=== PATIENT | male | born 1990 | race African-American/Black ===

== ENCOUNTER 2022-02-23 08:21 | Emergency (ER) | payer SELFPAY ==
[~2022-02-23] VITALS: Ht 177.8 cm; Wt 43.2 kg
[2022-02-23 08:23] VITALS: BP 132/77
[2022-02-23] MEDS ORDERED: GABA-283 PO (08:38)
== END 2022-02-23 08:39 | disposition left against medical advice (07) ==
LOC: M ED 08:21
DX: Z53.21 Procedure and treatment not carried out due to patient leaving prior to being seen by health care provider (principal)

== ENCOUNTER → 2024-11-25 | Outpatient (CLI) | payer OTHER ==
[~2024-11-25] MED LIST: GABA-284 PO
== END ==
LOC: M CARPUL 13:13
PROVIDERS: ATTEND Physician Assistant
DX: R07.9 Chest pain, unspecified (principal)